=== PATIENT | female | born 1990 | race African-American/Black ===

== ENCOUNTER → 2017-03-16 | Outpatient (CLI) | payer BC ==
--- NOTE | 2017-03-16 10:43 | KCIC ---
CT MAXILLOFACIAL WO CONTRAST, CT HEAD WO CONTRAST dated 03/16/2017 11:00 AM Indication: Chronic tension headache, sinus congestion and pressure, drainage Comparison: No comparison is available. Technique: CT imaging was performed of the[head and maxillofacial region], multiplanar reconstruction images submitted. One or more of the following individualized dose reduction techniques were utilized for this examination: 1. Automated exposure control 2. Adjustment of the mA and/or kV according to patient size 3. Use of iterative reconstruction technique. 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 There is no acute intracranial hemorrhage, midline shift, or intra-axial mass effect. Ventricular size and cerebral volume are within normal limits. The ruiz-white differentiation of the major vascular territories is preserved. Mastoid air cells are aerated. IMPRESSION: 1. 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 Maxillofacial CT: FINDINGS: Mastoid air cells are aerated. Paranasal sinuses are aerated, no air-fluid levels. Ostiomeatal units are patent bilaterally. IMPRESSION: 1. Paranasal sinuses are aerated. Electronically signed by: Sánchez Rudolph MD (03/16/2017 10:40 AM) [id number]
== END ==
LOC: KCIC CT 09:23
PROVIDERS: ATTEND Family Medicine
DX: G44.229 Chronic tension-type headache, not intractable (principal); R09.81 Nasal congestion
CPT/HCPCS: 70450; 70486

== ENCOUNTER → 2018-03-16 | Outpatient (CLI) | payer BC | END | disposition home or self-care (01) | LOC: KCIC US 12:34 | DX: Z34.82 Encounter for supervision of other normal pregnancy, second trimester (principal); Z3A.22 22 weeks gestation of pregnancy | CPT/HCPCS: 76805 ==